=== PATIENT | female | born 1980 | race African-American/Black ===

== ENCOUNTER 2017-04-23 10:52 | Emergency (ER) | payer OTHER ==
[2017-04-23] MEDS ORDERED: TYLENOL 500 MG TAB EXTRA STRENGTH PO ONE ×2 (12:30→12:31)
--- NOTE | 2017-04-23 13:10 | DR.GENAD ---
HPI - Complaint/Symptoms Chief Complaint Doctors Comments: VAGINAL BLEEDING AND LOWER BACK PAIN TODAY. 5 WEEKS . NO DYSURIA. PREVIOUS NO BLEEDING EXPERIENCE. - Nurses notes reviewed Nurses Notes Review: Yes - Source History Provided: Patient - Mode of Arrival Mode of Arrival: Ambulatory - Timing Came on: Suddenly - Duration Duration: Constant Duration: Hours - Severity Severity: Moderate ROS - Review of Systems Constitutional: No Symptoms Reported Eyes: No Symptoms Reported ENTM: No Symptoms Reported Respiratoy: No Symptoms Reported Cardiovascular: No Symptoms Reported Gastrointestinal/Abdominal: No Symptoms Reported Genitourinary: No Symptoms Reported Neurological: No Symptoms Reported Musculoskeletal: Back Pain, Back Integumentary: No Symptoms Reported Hematologic/Lymphatic: No Symptoms Reported Endocrine: No Symptoms Reported All Other Systems: Reviewed and Negative PE - Vital Signs Vitals: Temperature 98.1 F Pulse Rate [Left Brachial] 77 Pulse Rate 101 Respiratory Rate 18 Blood Pressure [Right Arm] 132/75 Blood Pressure 161/82 O2 Sat by Pulse Oximetry 100 - General Limitations: No Limitations General Appearance: Alert - Head Head Exam: Normal Inspection - Eyes Eye exam: Normal Appearance - ENT ENT Exam: Normal External Ear Exam External Ear Exam: Normal External Inspection TM/Canal Exam: Bilateral Normal Nose Exam: Normal Nose Exam Mouth Exam: Normal Inspection Throat Exam: Normal Inspection - Neck Neck Exam: Trachea Midline - Chest Chest Inspection: Symmetric Chest Wall Rise - Respiratory Respiratory Exam: Normal Lung Sounds Bilat Respiratory Exam: Bilateral Clear to Auscultation - Cardiovascular Cardiovascular Exam: Regular Rate, Normal Rhythm - Abdominal Exam Abdominal Exam: Normal Bowel Sounds, Soft. negative: Tenderness - Extremities Extremities Exam: Normal Inspection - Back Back Exam: Normal Inspection - Neurologic Neurological Exam: Alert, Oriented X3 - Psychiatric Psychiatric Exam: Anxious - Skin Skin Exam: Normal Color MDM - Additional Information Additional Information Obtained From: Family - Differential Diagnosis Differential Diagnosis: VAGINAL BLEEDING FIRST TRIMESTER, LOW BACK PAIN, THREATENED MISCARIAGE. Course - Treatment Treatment: SEE ORDERS. - Education/Counseling Education/Counseling: Patient, Family, Education Educated On: Treatment, Diagnosis, Needs for Follow Up ROR - Labs Reviewed Laboratory Results Reviewed?: Yes Result Diagrams: 04/23/17 12:20 Laboratory: WBC 8.3 X10^3/uL (3.6-10.0) 04/23/17 12:20 RBC 4.01 X10^6/uL (3.5-5.4) 04/23/17 12:20 Hgb 12.8 g/dL (12.0-16.0) 04/23/17 12:20 Hct 37.3 % (36.0-47.0) 04/23/17 12:20 MCV 93.0 fL (80.0-100.0) 04/23/17 12:20 MCH 31.9 pg (27.0-34.0) 04/23/17 12:20 MCHC 34.3 g/dL (33.0-35.0) 04/23/17 12:20 RDW 13.9 % (11.6-16.5) 04/23/17 12:20 Plt Count 349 X10^3/uL (150.0-450.0) 04/23/17 12:20 MPV 8.1 fL (7.4-11.0) 04/23/17 12:20 Neut % 60.6 % (42.0-75.0) 04/23/17 12:20 Lymph % 32.3 % (21.0-51.0) 04/23/17 12:20 Isabella % 5.9 % (0.0-13.0) 04/23/17 12:20 Eos % 0.6 % (0.9-2.9) L 04/23/17 12:20 Baso % 0.6 % (0.2-1.0) 04/23/17 12:20 Neut # 5.0 x10^3/uL (2.2-4.8) H 04/23/17 12:20 Lymph # 2.7 X10^3/uL (1.3-2.9) 04/23/17 12:20 Isabella # 0.5 x10^3/uL (0.3-0.8) 04/23/17 12:20 Eos # 0.0 x10^3/uL (0.0-0.2) 04/23/17 12:20 Baso # 0.1 X10^3/uL (0.0-0.1) 04/23/17 12:20 Absolute Nucleated RBC 0.0 /100WBC 04/23/17 12:20 HCG, Quant 2383 mIU/mL (0-6) H 04/23/17 12:20 Specimen Type Clean catch urine 04/23/17 12:15 Urine Color Yellow (YELLOW) 04/23/17 12:15 Urine Appearance Slightly hazy (CLEAR) 04/23/17 12:15 Urine pH 5.0 (5.0 - 8.0) 04/23/17 12:15 Ur Specific Fackler 1.030 (1.000-1.030) 04/23/17 12:15 Urine Protein 2+ (NEGATIVE) 04/23/17 12:15 Urine Glucose (UA) Negative (NEGATIVE) 04/23/17 12:15 Urine Ketones 1+ (NEGATIVE) 04/23/17 12:15 Urine Occult Blood 5+ (NEGATIVE) 04/23/17 12:15 Urine Nitrite Negative (NEGATIVE) 04/23/17 12:15 Urine Bilirubin Negative (NEGATIVE) 04/23/17 12:15 Urine Urobilinogen 2+ (NORMAL) 04/23/17 12:15 Ur Leukocyte Esterase 2+ (NEGATIVE) 04/23/17 12:15 Urine RBC 2-5 /HPF (NEGATIVE) 04/23/17 12:15 Urine WBC 2-5 /HPF (NEGATIVE) 04/23/17 12:15 Ur Squamous Epith Cells Few /HPF (NEGATIVE) 04/23/17 12:15 Urine Bacteria Trace /HPF (NEGATIVE) 04/23/17 12:15 Urine Mucus Moderate /HPF (NEGATIVE) 04/23/17 12:15 Ur Culture Indicated? No/not indicated 04/23/17 12:15 Blood Type AB POSITIVE 04/23/17 12:20 - XRAY XRAY Interpreted by: Radiologist - Diagnosis Discharge Problem: Threatened miscarriage, Vaginal bleeding in Back pain Qualifiers: Back pain location: low back pain Chronicity: acute Back pain laterality: bilateral Sciatica presence: without sciatica Qualified Code(s): M54.5 - Low back pain - Discharge Plan Disposition: 01 HOME, SELF-CARE Condition: Stable - Follow ups/Referrals Follow ups/Referrals: [facility],None [Primary Care Provider] - 2 days MURIEL CABALLERO [STAFF PHYSICIAN] - 2 days - Instructions Instructions: Vaginal Bleeding During , First Trimester, Pelvic Rest Additional Instructions: RETURN TO ED IF WORSE.
[2017-04-23 13:45] VITALS: BMI 26.2
[2017-04-23 14:00] LABS: BASOPHILS # (AUTO) 0.1 X10^3/uL (0.0-0.1); BASOPHILS % (AUTO) 0.6 % (0.2-1.0); EOSINOPHILS % (AUTO) 0.6 % (0.9-2.9); HEMATOCRIT 37.3 % (36.0-47.0); HEMOGLOBIN 12.8 g/dL (12.0-16.0); LYMPHOCYTES # (AUTO) 2.7 X10^3/uL (1.3-2.9); LYMPHOCYTES % (AUTO) 32.3 % (21.0-51.0); MEAN CORPUSCULAR HEMOGLOBIN 31.9 pg (27.0-34.0); MEAN CORPUSCULAR HGB CONC 34.3 g/dL (33.0-35.0); MEAN PLATELET VOLUME 8.1 fL (7.4-11.0); MONOCYTES # (AUTO) 0.5 x10^3/uL (0.3-0.8); MONOCYTES % (AUTO) 5.9 % (0.0-13.0); NEUTROPHILS % (AUTO) 60.6 % (42.0-75.0); PLATELET COUNT 349 X10^3/uL (150.0-450.0); RED BLOOD COUNT 4.01 X10^6/uL (3.5-5.4); RED CELL DISTRIBUTION WIDTH 13.9 % (11.6-16.5); WHITE BLOOD COUNT 8.3 X10^3/uL (3.6-10.0)
[2017-04-23 14:10] LABS: APPEARANCE,URINE SLIGHTLY HAZY (CLEAR); COLOR,URINE YELLOW (YELLOW)
[2017-04-23 14:11] LABS: BILIRUBIN,URINE NEGATIVE (NEGATIVE); BLOOD/HEMOGLOBIN,URINE 5+ (NEGATIVE); GLUCOSE, URINE NEGATIVE (NEGATIVE); KETONES,URINE 1+ (NEGATIVE); LEUKOCYTE ESTERASE ,URINE 2+ (NEGATIVE); NITRITES,URINE NEGATIVE (NEGATIVE); PROTEIN,URINE 2+ (NEGATIVE); UROBILINOGEN,URINE 2+ (NORMAL)
[2017-04-23 14:12] LABS: BACTERIA,URINE TRACE /HPF (NEGATIVE); MUCUS,URINE MODERATE /HPF (NEGATIVE); SQUAMOUS EPITHELIAL CELL,UR FEW /HPF (NEGATIVE)
--- NOTE | 2017-04-23 15:25 | US ---
HISTORY: , vaginal bleeding Study: Early OB sonogram Comparison: None Technique: Multiple grayscale sonographic images were obtained transvaginally. Findings: The uterus measured 5.6 x 5 by 7.5 centimeters. Within the uterus there is a well-defined cystic stru cture measuring 8.1 millimeters possibly representing a very early gestational sac. There is no visua lized pole or yolk sac. If this is a gestational sac gestational age is approximately 4 weeks 5 days +/-1 week. It does appear slightly eccentric within the uterus. The right ovary measured 2.5 x 1.9 by 3 centimeters. The left ovary measured 1.9 x 1.3 x 1.5 centimeters. The ovaries appeared withi n normal limits. There is normal blood flow to the ovaries. No adnexal masses or free fluid is identi fied. Close clinical, serologic, and sonographic follow up is recommended in order to confirm normal development. IMPRESSION: Well-defined cystic structure within the uterus likely a very early gestational sac but without visua lization of pole or yolk sac. Sac measurement suggests gestational age 4 weeks 5 days +/-1 week . Close clinical, serologic, and sonographic follow up is recommended confirm normal development No evidence for adnexal masses or free fluid within the cul de sac Reported By:
[2017-04-23 16:06] VITALS: BP 132/75
== END 2017-04-23 16:17 | disposition home or self-care (01) ==
LOC: ER 11:01
DX: O20.0 Threatened abortion (principal); O46.91 Antepartum hemorrhage, unspecified, first trimester; M54.5 Low back pain
CPT/HCPCS: 36415; 76801; 81001; 84702; 85025; 86900; 86901; 99283; 99284